=== PATIENT | female | born 1985 | race Caucasian/White ===

== ENCOUNTER → 2017-10-31 | Outpatient (CLI) | payer OTHER, BC, MEDICAID ==
[2017-10-05 07:13] VITALS: BMI 40.9
[~2017-10-31] MED LIST: ACET-1718 PO; ALB6.7R INH; HYDR-385 PO; IBUP800T37 PO; KET10 PO; LOR5/325 PO; NO MEDICATIONS; PEDI1TAB PO
== END ==
LOC: LAB 15:23
PROVIDERS: ATTEND Nurse Practitioner
DX: Z02.9 Encounter for administrative examinations, unspecified (principal)
CPT/HCPCS: 36415